=== PATIENT | male | born 1950 | race Caucasian/White ===

== ENCOUNTER 2022-03-07 12:48 | Outpatient (CLI) | payer MEDICARE, BC, SELFPAY | END 2022-03-07 12:49 | disposition home or self-care (01) | LOC: RAD 12:53 | PROVIDERS: PCP Surgery; Visit Provider Internal Medicine | DX: I35.0 Nonrheumatic aortic (valve) stenosis (principal); I35.1 Nonrheumatic aortic (valve) insufficiency | CPT/HCPCS: 93306 ==

== ENCOUNTER 2024-02-15 09:00 | Outpatient (CLI) | payer MEDICARE, BC, SELFPAY | END 2024-02-15 09:01 | disposition home or self-care (01) | LOC: NFLDREF 02-16 04:16 | PROVIDERS: PCP Student in an Organized Health Care Education/Training Program; Referring Provider Student in an Organized Health Care Education/Training Program; Visit Provider Nurse Practitioner Family | DX: N30.00 Acute cystitis without hematuria (principal); B96.20 Unspecified Escherichia coli [E. coli] as the cause of diseases classified elsewhere | CPT/HCPCS: 87086; 87186 ==

== ENCOUNTER 2024-11-06 10:15 | Outpatient (RCR) | payer MEDICARE, BC, SELFPAY | END 2025-01-22 14:04 | disposition home or self-care (01) | PROVIDERS: PCP Student in an Organized Health Care Education/Training Program; Visit Provider Student in an Organized Health Care Education/Training Program | DX: R42 Dizziness and giddiness (principal); M26.602 Left temporomandibular joint disorder, unspecified; Z51.89 Encounter for other specified aftercare | CPT/HCPCS: 97110; 97140; 97162 ==